=== PATIENT | male | born 1960 | race Caucasian/White ===

== ENCOUNTER 2020-03-03 01:20 | Emergency (ER) | payer OTHER ==
[~2020-03-03] VITALS: Ht 167.6 cm; Wt 74.4 kg
[2020-03-03 01:45] LABS: ABSOLUTE NEUTROPHILS 1.9 thou/uL (1.4-8.2); BASOPHILS 0.5 % (0.0-2.0); EOSINOPHILS 2.6 % (0.0-3.0); HEMATOCRIT 42.5 % (42.0-52.0); HEMOGLOBIN 14.4 gm/dL (14.0-18.0); LYMPHOCYTES 52.4 % (24.0-44.0); MCH 29.4 pg (26.0-34.0); MCHC 33.8 g/dL (28.0-37.0); MONOCYTES 10.2 % (1.0-8.0); PLATELET COUNT 175 thou/uL (150-400); POLYS 34.3 % (36.0-66.0); RBC 4.89 mil/uL (4.50-6.00); RDW 13.8 % (10.5-14.5); WBC 5.6 thou/uL (4.0-11.0)
[2020-03-03 02:01] LABS: ALBUMIN 3.8 g/dL (3.4-5.0); DIRECT BILIRUBIN 0.1 mg/dL (<0.1-0.2); TOTAL BILIRUBIN 0.4 mg/dL (0.2-1.0); TOTAL PROTEIN 7.2 g/dL (6.4-8.2)
[2020-03-03 02:02] LABS: ANION GAP 10 mmol/L (7-16); BUN 21 mg/dL (7-18); CALCIUM 8.3 mg/dL (8.5-10.1); CHLORIDE 103 mmol/L (98-107); CO2 24 mmol/L (21-32); CREATININE 1.2 mg/dL (0.7-1.3); GLUCOSE 117 mg/dL (74-106); POTASSIUM 3.5 mmol/L (3.5-5.1); SODIUM 137 mmol/L (136-145); TROPONIN-I <0.06 ng/mL (<0.06)
[2020-03-03 02:55] VITALS: BP 185/88
--- NOTE | 2020-03-04 10:07 | EKG ---
[facility] [place] [address] ELECTROCARDIOGRAM REPORT Name: TANNER ESQUIVEL Room #: [facility]#: [id number] Admission: 03/03/20 Attend Phys: Discharge: 03/03/20 Date of : 58 Report #: [id number] THIS REPORT FOR: cc: NO FAMILY PHYSICIAN or PCP NO FAMILY PHYSICIAN or PCP Agapito Armstrong MD ~ THIS REPORT FOR: //name// [facility] ED Test Date: 2020-03-03 Test Time: 01:09:30 Pat Name: TANNER ESQUIVEL Department: Room: Gender: Legislative Aide: [facility] : 1960 Requested By: Naif Henning Order Number: [id number] MD: Agapito Armstrong Measurements Intervals Irene Rate: 63 P: 49 KS: 157 QRS: 31 QRSD: 105 T: 35 QT: 407 QTc: 417 Interpretive Statements Sinus rhythm No previous ECG available for comparison Electronically Signed On 03-04-2020 10:06:15 CDT by Agapito Armstrong [email or web address] <ELECTRONICALLY SIGNED> By: Agapito Armstrong MD 03/04/20 [id number] Agapito Armstrong MD /EPI
== END 2020-03-03 03:00 | disposition home or self-care (01) ==
LOC: ER 01:20
PROVIDERS: Emergency Medicine
DX: R10.13 Epigastric pain (principal); R07.9 Chest pain, unspecified